=== PATIENT | female | born 1965 | race Caucasian/White ===

== ENCOUNTER → 2019-02-12 | Outpatient (CLI) | payer OTHER ==
[~2019-02-12] MED LIST: ESTRACE0.5 MG PO; LISINOPRIL5 MG PO; VIIBRYD40 MG PO; XANAX 0.25 MG0.25 MG PO
== END ==
LOC: CAT 15:24
DX: Z13.6 Encounter for screening for cardiovascular disorders (principal); E78.00 Pure hypercholesterolemia, unspecified; I25.10 Atherosclerotic heart disease of native coronary artery without angina pectoris